=== PATIENT | male | born 1960 | race Caucasian/White ===

== ENCOUNTER 2018-11-28 08:08 | Emergency (ER) | payer OTHER ==
[2018-11-28] MEDS: AMLODIPINE 10 MG TAB PO (08:42)
== END 2018-11-28 09:10 | disposition home or self-care (01) ==
LOC: FTE 08:08
DX: Z76.0 Encounter for issue of repeat prescription (principal); I10 Essential (primary) hypertension
CPT/HCPCS: 99283; Z7502